=== PATIENT | female | born 1960 | race African-American/Black ===

== ENCOUNTER 2016-09-17 10:12 | Emergency (ER) | payer MEDICAID, OTHER ==
[~2016-09-17] VITALS: Ht 170.2 cm; Wt 101.8 kg
[~2016-09-17 10:12] MED LIST: SERT20OR PO
[2016-09-17] MEDS ORDERED: KETOROLAC TROMETHAMINE 60 MG/2 ML VIAL IM ONE (11:00)
[2016-09-17 11:25] LABS: APPEARANCE,URINE CLEAR (CLEAR); GLUCOSE, URINE (UA) NEGATIVE (NEGATIVE); KETONES,URINE NEGATIVE (NEGATIVE); LEUKOCYTE ESTERASE ,URINE NEGATIVE (NEGATIVE); OCCULT BLOOD,URINE TRACE (NEGATIVE); PROTEIN,URINE NEGATIVE (NEGATIVE)
[2016-09-17 11:38] LABS: RBC,URINE 0-2 /HPF (0-2); SQUAMOUS EPITHELIAL CELL,UR Moderate /LPF (None Seen); WBC,URINE 0-2 /HPF (0-5)
[2016-09-17 11:39] VITALS: BP 116/79
== END 2016-09-17 12:05 | disposition home or self-care (01) ==
LOC: EMS 10:14
DX: S39.012A Strain of muscle, fascia and tendon of lower back, initial encounter (principal); M62.830 Muscle spasm of back; Z88.5 Allergy status to narcotic agent; X58.XXXA Exposure to other specified factors, initial encounter; Y93.89 Activity, other specified; Y92.89 Other specified places as the place of occurrence of the external cause; Y99.8 Other external cause status
CPT/HCPCS: 81001; 96372; 99283; J1885

== ENCOUNTER 2017-06-06 17:17 | Emergency (ER) | payer OTHER ==
[~2017-06-06] VITALS: Ht 170.2 cm; Wt 106.8 kg
[2017-06-06] MEDS ORDERED: IBUP-2070 PO (18:44)
[2017-06-06 19:37] LABS: INFLUENZA TYPE A NEGATIVE FOR TYPE A (NEGATIVE); INFLUENZA TYPE B NEGATIVE FOR TYPE B (NEGATIVE)
[2017-06-06] MEDS ORDERED: OSELTAMIVIR PHOSPHATE 75 MG CAPSULE PO ONE (21:30)
[2017-06-06] MEDS ORDERED: KETOROLAC TROMETHAMINE 60 MG/2 ML VIAL IM ONE (21:30)
[2017-06-06 21:45] VITALS: BP 132/77
== END 2017-06-06 22:04 | disposition home or self-care (01) ==
LOC: EMS 17:19
DX: J06.9 Acute upper respiratory infection, unspecified (principal); B34.9 Viral infection, unspecified; Z88.5 Allergy status to narcotic agent
CPT/HCPCS: 71010; 87804; 96372; 99285; J1885

== ENCOUNTER → 2024-12-31 | Emergency (ER) | payer MEDICAID ==
[~2024-12-31] VITALS: Ht 170.2 cm; Wt 109.1 kg
[~2024-12-31] MED LIST changes: +KETO10TA2 PO; -SERT20OR PO; +TRAM50TA5 PO
[2024-12-31 18:56] VITALS: TEMP 98.1
[2024-12-31 20:39] VITALS: BP 135/77; PULSE 89; RESP 18; O2SAT 97
[2024-12-31] MEDS: KETOROLAC TROMETHAMINE 60 MG/2 ML VIAL IM ONE (23:23)
== END | disposition still patient (30) ==
LOC: EMS 18:51
DX: M79.18 Myalgia, other site (principal); M19.90 Unspecified osteoarthritis, unspecified site; F32.A Depression, unspecified; Z90.89 Acquired absence of other organs; Z98.890 Other specified postprocedural states; Z88.5 Allergy status to narcotic agent; Z79.899 Other long term (current) drug therapy; W06.XXXA Fall from bed, initial encounter; Y93.89 Activity, other specified; Y92.038 Other place in apartment as the place of occurrence of the external cause; Y99.8 Other external cause status
CPT/HCPCS: 99283; 96372; J1885

== ENCOUNTER 2025-04-02 10:05 | Emergency (ER) | payer MEDICAID ==
[~2025-04-02] VITALS: Ht 170.2 cm; Wt 109.1 kg
[2025-04-02 10:08] VITALS: TEMP 98.2
[2025-04-02] MEDS ORDERED: BUPR-345 PO (10:12)
[2025-04-02 10:17] LABS: COVID AG,FIA SOURCE NASAL SWAB
[2025-04-02 10:50] LABS: INFLUENZA TYPE A NEGATIVE FOR TYPE A (NEGATIVE); INFLUENZA TYPE B NEGATIVE FOR TYPE B (NEGATIVE); SARS-COV2 (COVID) ANTIGEN,FIA Negative (Negative)
[2025-04-02] MEDS: IPRATROPIUM BROMIDE 0.5 MG/2.5 ML NEB SOLUTION NEB ONE (13:11)
[2025-04-02] MEDS: ALBUTEROL SULFATE 2.5 MG/0.5 ML NEB SOLUTION NEB ONE (13:11)
[2025-04-02 13:17] VITALS: PULSE 78; RESP 16; O2SAT 98
[2025-04-02 13:26] VITALS: PULSE 87; RESP 18; O2SAT 99
[2025-04-02] MEDS ORDERED: AMOX500C2 PO (13:52)
[2025-04-02] MEDS: OXYMETAZOLINE HCL 0.05% 15 ML NASAL SPRAY NASAL ONE (14:01)
[2025-04-02 14:33] VITALS: BP 133/74; PULSE 85; RESP 18; O2SAT 99
== END 2025-04-02 14:34 | disposition home or self-care (01) ==
LOC: EMS 10:09
DX: J32.9 Chronic sinusitis, unspecified (principal); R05.9 Cough, unspecified; R09.81 Nasal congestion; F32.A Depression, unspecified; J45.909 Unspecified asthma, uncomplicated; M19.90 Unspecified osteoarthritis, unspecified site; Z88.5 Allergy status to narcotic agent; Z90.89 Acquired absence of other organs; Z79.899 Other long term (current) drug therapy; Z20.822 Contact with and (suspected) exposure to COVID-19
CPT/HCPCS: 71045; 87804; 94060; 94640; 99284; J7613